=== PATIENT | male | born 1995 | race African-American/Black ===

== ENCOUNTER 2017-05-18 23:55 | Emergency (ER) | payer OTHER ==
[~2017-05-18] VITALS: Ht 182.9 cm; Wt 118.6 kg
[~2017-05-18 23:55] MED LIST: NO HOME MEDICATIONS; PHENERGAN W/CO120 M1 PO; ZITHROMAX Z PA250 MG PO
[2017-05-19 00:01] VITALS: TEMP 99.4
[2017-05-19 01:32] VITALS: BP 118/90; PULSE 87
== END 2017-05-19 01:32 | disposition home or self-care (01) ==
LOC: COL.ER 23:55
DX: R00.2 Palpitations (principal)

== ENCOUNTER 2018-01-09 08:44 | Emergency (ER) | payer OTHER ==
[~2018-01-09] VITALS: Ht 182.9 cm; Wt 124.3 kg
[2018-01-09 08:57] VITALS: TEMP 98
[2018-01-09] MEDS ORDERED: ZOFRAN ODT4 MG PO (09:47)
[2018-01-09 11:55] VITALS: BP 154/96; PULSE 76
== END 2018-01-09 11:55 | disposition home or self-care (01) ==
LOC: COL.ER 08:44
DX: K29.70 Gastritis, unspecified, without bleeding (principal)
CPT/HCPCS: J0780; J1885; J2405; J7030